=== PATIENT | male | born 1990 | race Caucasian/White ===

== ENCOUNTER 2016-10-11 23:51 | Emergency (ER) | payer OTHER ==
[~2016-10-11] VITALS: Ht 185.4 cm; Wt 122.7 kg
[~2016-10-11 23:51] MED LIST: OMEPRAZOLE20 MG PO
[2016-10-12] MEDS ORDERED: ZOFRAN ODT4 MG PO (01:30)
[2016-10-12 01:47] VITALS: BP 106/55
== END 2016-10-12 01:40 | disposition home or self-care (01) ==
LOC: ED 23:51
DX: R10.84 Generalized abdominal pain (principal); R11.2 Nausea with vomiting, unspecified
CPT/HCPCS: J2270; J2405; J7030